=== PATIENT | male | born 2000 | race Caucasian/White ===

== ENCOUNTER 2023-02-27 21:16 | Emergency (ER) | payer SELFPAY ==
[2023-02-27 21:25] VITALS: BP 114/70; PULSE 100; RESP 16; TEMP 36.5; O2SAT 98; BMI 20.9
[2023-02-27] MEDS: sodium chloride 0.9% 1,000 ML 999 ML IV ×2 (22:09→23:42)
[2023-02-27 22:10] LABS: Basophils # 0.1 10^3/uL (0.0-0.1); Basophils % 0.6 %; Eosinophils # 0.3 10^3/uL (0.0-0.8); Eosinophils % 3.3 %; Hematocrit 48.6 % (37-53); Lymphocytes # 0.3 10^3/uL (0.8-4.8); Lymphocytes % 3.2 %; Mean Corpuscular HGB Conc 34.8 g/dL (30-55); Mean Corpuscular Hemoglobin 30.7 pg (27-33); Mean Corpuscular Volume 88.2 fl (82-101); Mean Platelet Volume 9.3 fL (7.4-10.4); Monocytes # 0.8 10^3/uL (0.2-0.9); Monocytes % 9.1 %; Neutrophils # 7.29 10^3/uL (1.8-7.7); Neutrophils % 83.7 %; Nucleated Red Blood Cells % 0 %; Platelet Count 201 10^3/cmm (157-399); Red Blood Count 5.51 10^6/uL (3.85-5.65); Red Cell Distribution Width 11.9 % (12.1-15.1); White Blood Count 8.71 10^3/uL (3.29-11.43)
[2023-02-27] MEDS: ondansetron 2 mg/ML SDV 2 mL 4 MG IVP (22:10)
[2023-02-27 22:28] VITALS: BP 111/63; PULSE 94; RESP 14; O2SAT 99
[2023-02-27 22:28] LABS: Alanine Aminotransferase 14 U/L (0-41); Albumin Level 5.4 g/dL (3.5-5.2); Alkaline Phosphatase 104 U/L (40-130); Anion Gap 17.5 (5-19); Aspartate Amino Transferase 15 U/L (0-40); Blood Urea Nitrogen 19 mg/dL (6-20); Calcium 10.6 mg/dL (8.5-10.5); Carbon Dioxide 25 mmol/L (22-29); Chloride 103 mmol/L (98-107); Glomerular Filtration Rate 84.5 mL/min (90-130); Glucose 121 mg/dL (65-115); Lipase 14 U/L (13-60); Magnesium 1.8 mg/dL (1.7-2.3); Osmolality Calculated 296 mOsm/kg (285-295); Potassium 4.5 mmol/L (3.5-5.1); Sodium 141 mmol/L (136-145); Total Bilirubin 1.4 mg/dL (0.15-1.2); Total Protein 8.4 g/dL (6.6-8.7)
[2023-02-27 22:59] LABS: Urine Appearance Hazy (CLEAR); Urine Color Dark Yellow (Yellow); pH Urine 5 (5-7)
[2023-02-27 23:00] LABS: Add Urine Culture? No; Add Urine Microscopic? YES; Amorphous Sediment Urine TRACE /hpf; Bacteria Urine TRACE /hpf; Bilirubin Urine 2+ (Negative); Blood Urine Neg (Negative); Glucose Urine UA Norm (Normal); Ketones Urine 3+ (Negative); Leukocyte Esterase Urine Trace (Negative); Mucus Urine 3+ /hpf; Nitrate Urine Negative (Negative); Protein Urine Trace (Negative); Specific Gravity, Urine 1.025 (1.005-1.030); Urobilinogen Urine 1 mg/dL (Negative); WBC Urine 0-4 /hpf (0-5)
--- NOTE | 2023-02-27 23:09 | CTR_ITS ---
PROCEDURE INFORMATION: Exam: CT Abdomen And Pelvis With Contrast Exam date and time: 02/27/2023 11:21 PM Age: 22 years old Clinical indication: Nausea and vomiting; Abdominal pain; Prior surgery; Surgery date: 6+ months; Surgery type: Small bowel resection; Patient HX: Periumbilical pain with n/v/d. History of diverticulitis. ; Additional info: Periumbilical pain, vomiting, diarrhea, dehydration, urine bili and urobili TECHNIQUE: Imaging protocol: Computed tomography of the abdomen and pelvis with contrast. Radiation optimization: All CT scans at this facility use at least one of these dose optimization techniques: automated exposure control; mA and/or kV adjustment per patient size (includes targeted exams where dose is matched to clinical indication); or iterative reconstruction. Contrast material: OMNI 350; Contrast volume: 100 ml; Contrast route: INTRAVENOUS (IV); REPORTING DATA: Count of CT and Cardiac NM exams in prior 12 months: This patient has received 0 known CTs and 0 known cardiac nuclear medicine studies in the 12 months prior to the current study. COMPARISON: No relevant prior studies available. RADIATION DOSE METRICS: Total DLP (mGy-cm): 444.87 FINDINGS: Liver: Hepatic steatosis. Gallbladder and bile ducts: Normal. No calcified stones. No ductal dilation. Pancreas: Normal. No ductal dilation. Spleen: Normal. No splenomegaly. Adrenal glands: Normal. No mass. Kidneys and ureters: Normal. No hydronephrosis. Stomach and bowel: Prominent fluid in small bowel and colon suggestive of an enterocolitis. Appendix: No evidence of appendicitis. Intraperitoneal space: Unremarkable. No free air. No significant fluid collection. Vasculature: Unremarkable. No abdominal aortic aneurysm. Lymph nodes: Unremarkable. No enlarged lymph nodes. Urinary bladder: Unremarkable as visualized. Reproductive: Unremarkable as visualized. Bones/joints: Unremarkable. No acute fracture. Soft tissues: Unremarkable. CT/CT abdomen pelvis w con* [id number] IMPRESSION: 1. Prominent fluid in small bowel and colon suggestive of an enterocolitis. 2. Hepatic steatosis.
[2023-02-27 23:30] VITALS: BP 135/58; PULSE 96; RESP 14; O2SAT 95
[2023-02-27] MEDS: iohexol 350 mg/mL 500 mL Btl (per mL) IV (23:30)
--- NOTE | 2023-02-27 23:53 | ED_ITS ---
HPI - Nausea/Vomiting/Diarrhea General: Chief complaint: Nausea/Vomiting/Diarrhea Stated complaint: Vomiting Time Seen by Provider: 02/27/23 22:37 Source: patient Mode of arrival: ambulatory Limitations: no limitations History of Present Illness: Patient presents to the emergency department today for evaluation treatment of periumbilical abdominal pain, profuse vomiting, profuse diarrhea. He reports others at home have had a GI bug but have not seem to be as ill as he is. Patient does have a significant history of approximately 1 year ago having a bowel resection. He also notes that currently, where he resides is under boil order but, they were unaware and reports drinking the water. He reports diarrhea is not really brown and is very watery. He also notes profuse vomiting. No recorded fevers. Patient lives in [facility]. I did look to see what type of boil order was ineffective but, cannot find any active orders at this time. Review of Systems General: Reports: 10 or more systems reviewed and unremarkable except in HPI and below Physical Exam Const: COMMON NORMALS: no acute distress, patient oriented x3 and alert HENMT: COMMON NORMALS: normocephalic, atraumatic, hearing grossly normal bilaterally and moist oral mucous membranes HEAD & SCALP: normocephalic and atraumatic Eye: COMMON NORMALS: Equal, round and reactive pupils present, EOMs intact bilaterally and conjunctivae normal CONJUNCTIVA: Yes conjunctivae normal PUPIL: Yes Equal, round and reactive pupils present Neck/C-Spine: COMMON NORMALS: full ROM and no JVD Lymph: LYMPHATIC: no lymphadenopathy noted Resp: COMMON NORMALS: normal respiratory effort, No retractions, No use of accessory muscles and clear to auscultation bilaterally AUSCULTATION: clear to auscultation bilaterally Cardio: COMMON NORMALS: no JVD, regular rate and regular rhythm RATE: reg ular rate RHYTHM: regular rhythm GI: OTHER: Hyperactive bowel sounds. Generalized tenderness across the mid abdomen without specific point tenderness. No obvious bloat or distention. : COMMON NORMALS: Yes no CVA tenderness BLADDER/KIDNEY EXAM: Yes no CVA tenderness Back/Pelvis: COMMON NORMALS: no CVA tenderness, no thoracic nor lumbar tenderness and thoraco-lumbar ROM normal Extremity: COMMON NORMALS: normal to inspection, full ROM and capillary refill normal Neuro: COMMON NORMALS: patient oriented x3 SENSORIUM/ORIENTATION: Yes alert Psych: COMMON NORMALS: mental status grossly normal, Normal thought process present, cooperative, normal affect and activity/motor behavior normal THOUGHT PROCESS: Normal thought process present Skin: COMMON NORMALS: no rashes or lesions noted and no wounds NARRATIVE SKIN EXAM: Patient looks pale. GENERAL SKIN EXAM: no rashes or lesions noted Course Vital Signs: Vital signs: Vital Signs Temperature 97.7 F 02/27/23 21:25 Pulse Rate 96 02/27/23 23:30 Respiratory Rate 14 02/27/23 23:30 Blood Pressure 135/58 02/27/23 23:30 Pulse Oximetry 95 02/27/23 23:30 Oxygen Delivery Me thod Room Air 02/27/23 23:30 MDM - Nausea/Vomiting/Diarrhea Medical Decision Making Patient's vital signs are stable. Given that he reports only several hours of vomiting and diarrhea, he has quite a bit of ketones and acute decrease in GFR noted at this time. Fluids were started and antinausea medicine given. Patient was able to provide a very small specimen of mucousy, grimaldo stool with bright red noted within. While it was not enough to get a full stool evaluation, they were able to perform a guaiac and the lactoferrin which were both positive. CT shows an enteritis pattern. Discussed the case with Dr. Montero. Patient has so far tolerated ice chips without vomiting here in the ER but, there is concerns with oral medication as he recommended empiric coverage with metronidazole and Cipro. Dr. Montero recommended first round of treatment via IV. Patient has been given multiple liters of fluid here in the emergency department. Dr. Montero received transfer of care of this patient at 0100 for continued monitoring of symptoms while patient received his IV infusions. The plan is to have patient discharged home after fluids and medicine to continue oral fluids at home as well as continue his antibiotics. He cannot follow-up with his primary care doctor next week. He was given return precautions for return of vomiting without ability to tolerate fluids, concerns of dehydration, or vomiting blood or significant blood per rectum. Patient verbalized understanding and agreement to treatment plan. Differential Diagnosis Likely gastroenteritis and dehydration; Unlikely traveler's diarrhea, food poisoning, clostridium difficile infection or drug-induced nausea and vomiting Lab Data 02/27/23 22:04 02/27/23 22:04 Radiology Impressions Abdomen/Pelvis CT 02/27/23 23:09 IMPRESSION: 1. Prominent fluid in small bowel and colon suggestive of an enterocolitis. 2. Hepatic steatosis. Laboratory Results WBC 8.71 10^3/uL (3.29-11.43) 02/27/23 22:04 RBC 5.51 10^6/uL (3.85-5.65) 02/27/23 22:04 Hgb 16.90 g/dL (11.27-16.99) 02/27/23 22:04 Hct 48.6 % (37-53) 02/27/23 22:04 MCV 88.2 fl (82-101) 02/27/23 22:04 MCH 30.7 pg (27-33) 02/27/23 22:04 MCHC 34.8 g/dL (30-55) 02/27/23 22:04 RDW 11.9 % (12.1-15.1) L 02/27/23 22:04 Plt Count 201 10^3/cmm (157-399) 02/27/23 22:04 MPV 9.3 fL (7.4-10.4) 02/27/23 22:04 Neut % (Auto) 83.7 % 02/27/23 22:04 Lymph % (Auto) 3.2 % 02/27/23 22:04 [place] % (Auto) 9.1 % 02/27/23 22:04 Eos % (Auto) 3.3 % 02/27/23 22:04 Baso % (Auto) 0.6 % 02/27/23 22:04 Neut # (Auto) 7.29 10^3/uL (1.8-7.7) 02/27/23 22:04 Lymph # (Auto) 0.3 10^3/uL (0.8-4.8) L 02/27/23 22:04 [place] # (Auto) 0.8 10^3/uL (0.2-0.9) 02/27/23 22:04 Eos # (Auto) 0.3 10^3/uL (0.0-0.8) 02/27/23 22:04 Baso # (Auto) 0.1 10^3/uL (0.0-0.1) 02/27/23 22:04 Nucleated RBC % (auto) 0 % 02/27/23 22:04 Nucleated RBCs # 0.0 /100WBC 02/27/23 22:04 Sodium 141 mmol/L (136-145) 02/27/23 22:04 Potassium 4.5 mmol/L (3.5-5.1) 02/27/23 22:04 Chloride 103 mmol/L (98-107) 02/27/23 22:04 Carbon Dioxide 25 mmol/L (22-29) 02/27/23 22:04 Anion Gap 17.5 (5-19) 02/27/23 22:04 BUN 19 mg/dL (6-20) 02/27/23 22:04 Creatinine 1.1 mg/dL (0.7-1.2) 02/27/23 22:04 GFR Calculation 84.5 mL/min (90-130) L 02/27/23 22:04 Glucose 121 mg/dL (65-115) H 02/27/23 22:04 Calculated Osmolality 296 mOsm/kg (285-295) H 02/27/23 22:04 Calcium 10.6 mg/dL (8.5-10.5) H 02/27/23 22:04 Magnesium 1.8 mg/dL (1.7-2.3) 02/27/23 22:04 Total Bilirubin 1.4 mg/dL (0.15-1.2) H 02/27/23 22:04 AST 15 U/L (0-40) 02/27/23 22:04 ALT 14 U/L (0-41) 02/27/23 22:04 Alkaline Phosphatase 104 U/L (40-130) 02/27/23 22:04 Total Protein 8.4 g/dL (6.6-8.7) 02/27/23 22:04 Albumin 5.4 g/dL (3.5-5.2) H 02/27/23 22:04 Globulin 3.0 g/dL (1.3-4.6) 02/27/23 22:04 Lipase 14 U/L (13-60) 02/27/23 22:04 Urine Color Dark yellow (Yellow) 02/27/23:42 Urine Appearance Hazy (CLEAR) A 02/27/23 22:42 Urine pH 5 (5-7) 02/27/23 22:42 Ur Specific [place] 1.025 (1.005-1.030) 02/27/23 22:42 Urine Protein Trace (Negative) 02/27/23 22:42 Urine Glucose (UA) Norm (Normal) 02/27/23 22:42 Urine Ketones 3+ (Negative) H 02/27/23 22:42 Urine Blood Neg (Negative) 02/27/23 22:42 Urine Nitrate Negative (Negative) 02/27/23 22:42 Urine Bilirubin 2+ (Negative) H 02/27/23 22:42 Urine Urobilinogen 1 mg/dL (Negative) H 02/27/23 22:42 Ur Leukocyte Esterase Trace (Negative) H 02/27/23 22:42 Urine RBC None /hpf (0-2) 02/27/23 22:42 Urine WBC 0-4 /hpf (0-5) H 02/27/23 22:42 Ur Squamous Epith Cells None /hpf (0-5) 02/27/23 22:42 Amorphous Sediment Trace /hpf 02/27/23 22:42 Urine Bacteria Trace /hpf (NONE) 02/27/23 22:42 Urine Mucus 3+ /hpf 02/27/23 22:42 All radiology interpretation(s) finalized by discharge Discharge Plan Discharge Condition: Stable Coding Level of Care Code ED Bill Collector for Ambrose Rhoades
[2023-02-28] MEDS: ciprofloxacin 400 MG/200 ML PREMIX 200 MG IV (01:23)
[2023-02-28] MEDS: metroNIDAZOLE IV 500 MG/100 ML PREMIX 100 MG IV (01:28)
[2023-02-28] MEDS: sodium chloride 0.9% 1,000 ML 999 ML IV (01:33)
[2023-02-28 01:43] VITALS: BP 125/64; PULSE 89; O2SAT 95
[2023-02-28 02:23] VITALS: BP 121/63; PULSE 91; O2SAT 94
== END 2023-02-28 02:49 | disposition home or self-care (01) ==
PROVIDERS: Emergency Medicine; Emergency Provider Physician Assistant
DX: R10.33 Periumbilical pain (principal); K76.0 Fatty (change of) liver, not elsewhere classified
CPT/HCPCS: 74177; 80053; 81001; 82274; 83630; 83690; 83735; 85025; 87045; 87177; 87209; 87427; 87449; 87493; 96365; 96367; 96375; 99285; J0744; J2405; J3490; J7030; Q9967